=== PATIENT | male | born 1995 | race Caucasian/White ===

== ENCOUNTER 2018-06-19 06:18 | Emergency (ER) | payer OTHER ==
[~2018-06-19] VITALS: Ht 182.9 cm; Wt 88.6 kg
[2018-06-19] MEDS ORDERED: ALBUTEROL SULFATE 2.5 MG/0.5 ML INH NEB SOLN NEB ONE (07:00)
[2018-06-19] MEDS ORDERED: PROAAER10 INH (07:25)
[2018-06-19] MEDS ORDERED: PRED20TA PO (07:25)
[2018-06-19] MEDS ORDERED: AEROMIS XX (07:26)
[2018-06-19 07:52] LABS: INFLUENZA A AMPLIFICATION NEGATIVE (NEGATIVE); INFLUENZA B AMPLIFICATION NEGATIVE (NEGATIVE)
[2018-06-19 08:09] VITALS: BP 137/73
== END 2018-06-19 08:10 | disposition home or self-care (01) ==
LOC: M ED 06:18
DX: J06.9 Acute upper respiratory infection, unspecified (principal); F17.200 Nicotine dependence, unspecified, uncomplicated; Z87.09 Personal history of other diseases of the respiratory system